=== PATIENT | female | born 1985 | race Two or more races ===

== ENCOUNTER 2024-04-27 01:44 | Emergency (ER) | payer OTHER ==
[~2024-04-27] VITALS: Ht 170.2 cm; Wt 54.5 kg
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
[2024-04-27 02:29] LABS: Basophils # (auto) 0 10 ^3/uL (0-0.2); Basophils % (auto) 0.2 % (0.0-2.0); Eosinophils # (auto) 0 10 ^3/uL (0-0.8); Eosinophils % (auto) 0.1 % (0.0-7.0); Hematocrit 43.3 % (36.0-46.0); Hemoglobin 14.8 g/dL (12.2-16.2); Lymphocytes # (auto) 1.1 10 ^3/uL (0.4-5.4); Lymphocytes % (auto) 11.2 % (10.0-50.0); Mean Corpuscular Hemoglobin 31.8 pg (28.0-32.0); Mean Corpuscular Hgb Conc. 34.1 g/dL (32.0-36.0); Mean Corpuscular Volume 93.3 fL (80.0-100.0); Monocytes # (auto) 0.5 10 ^3/uL (0-1.3); Monocytes % (auto) 4.8 % (0.0-12.0); Neutrophils # (auto) 8.3 10 ^3/uL (1.6-8.6); Neutrophils % (auto) 83.7 % (37.0-80.0); Nucleated Red Blood Cells % 0.1 %; Platelet Count (auto) 293 10^3/uL (140-450); Red Blood Cells 4.64 10^6/uL (4.0-5.20); Red Cell Distribution Width 12.4 % (11.8-14.3); White Blood Cell 9.9 10^3/uL (4.4-10.8)
[2024-04-27 02:44] LABS: Chloride 105 mmol/L (98-107); Sodium 140 mmol/L (136-145)
[2024-04-27 02:45] LABS: Anion Gap 16 (5-15); Calcium 10.2 mg/dL (8.7-10.4)
[2024-04-27 02:47] LABS: Carbon Dioxide 19 mmol/L (20-31); Potassium 2.8 mmol/L (3.5-5.1)
[2024-04-27 02:50] LABS: BUN/Creatinine Ratio 6.1 (10.0-20.0); Blood Urea Nitrogen 8 mg/dL (9-23); Glucose 183 mg/dL (74-106)
[2024-04-27 02:55] LABS: Acetaminophen < 2.0 UG/ML (10.0-20.0); Salicylate < 3.0 mg/dL (-30)
[2024-04-27 03:02] LABS: Blood Alcohol 4.1 mg/dL (<10)
[2024-04-27 08:16] LABS: Urine Bacteria FEW /hpf (None Seen); Urine Blood TRACE /uL (Negative); Urine Clarity Turbid (Clear); Urine Color Yellow (Yellow); Urine Mucus FEW (None Seen); Urine Protein, UAD 1+ (Negative); Urine Squamous Epithelial Cell FEW /hpf (<5); Urine Urobilinogen Normal (Negative); Urine WBC 4 /HPF (0-5)
[2024-04-27 08:30] LABS: Opiate Scree,Urine Neg (NEGATIVE)
[2024-04-27 08:34] LABS: Amphetamine Screen, Urine Pos (NEGATIVE); Barbiturate Scree,Urine Neg (NEGATIVE); Benzodiazephine Screen, Urine Neg (NEGATIVE); Cannabinoid Screen, Urine Pos (NEGATIVE); Cocaine Screen, Urine Neg (NEGATIVE); Phencyclidine Screen, Urine Neg (NEGATIVE)
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
[2024-04-27 18:40] VITALS: BP 119/86; PULSE 115; RESP 16; TEMP 97.8; O2SAT 96
[2024-04-27] MEDS ORDERED: OLANZapine 5 MG TAB PO ONE (22:00)
== END 2024-04-27 19:01 | disposition short-term general hospital (02) ==
LOC: ER 01:44 → EDBD 01:44 → ER 19:01
DX: R40.4 Transient alteration of awareness (principal); F15.90 Other stimulant use, unspecified, uncomplicated; Z32.02 Encounter for pregnancy test, result negative; Z79.899 Other long term (current) drug therapy
CPT/HCPCS: 36415; 80048; 80307; 80320; 80329; 81001; 81025; 85025